=== PATIENT | female | born 1990 | race Caucasian/White ===

== ENCOUNTER 2018-10-23 11:59 | Emergency (ER) | payer OTHER ==
[2018-10-23] MEDS ORDERED: Ketorolac 60 MG/2 ML SDV IM SCH (13:30)
[2018-10-23] MEDS ORDERED: Ketorolac 60 MG/2 ML SDV IM ONE (13:51)
--- NOTE | 2018-10-23 14:01 | EDM.PDOC ---
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 She reports having a 09/28/18. She went to [facility] and was given Misoprostil. She reports last evening the pain became severe "stabbing pain that brings her to her knees." She reports the cramping is similar to when she had a ovarian cyst, but worse. She denies any vaginal bleeding, discharge or odor. She denies any fever, chills, back pain or dysuria. She does not have a PCP. She is G8 P 5 M1 A2. 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 Denies: Constipation, Diarrhea, Nausea : Reports: Pain, Other (suprapubic pain) Musculoskeletal: Reports: No Symptoms Skin: Reports: No Symptoms Neurological: Reports: No Symptoms Psychiatric: Reports: No Symptoms Hematologic/Lymphatic: Reports: No Symptoms Immunologic: Reports: No Symptoms ED EXAM, GI/ABD - Physical Exam Exam: See Below Exam Limited By: No Limitations General Appearance: Alert, WD/WN, No Apparent Distress Respiratory/Chest: No Respiratory Distress, Lungs Clear, Normal Breath Sounds, No Accessory Muscle Use, Chest Non-Tender Cardiovascular: Normal Peripheral Pulses, Regular Rate, Rhythm, No Edema, No Gallop, No JVD, No Murmur, No Rub GI/Abdominal Exam: Normal Bowel Sounds, Soft, No Organomegaly, No Distention, No Abnormal Bruit, No Mass, Pelvis Stable, Other (suprapubic tenderness with deep palpation. ) (Female) Exam: Deferred Back Exam: Normal Inspection, Full Range of Motion Extremities: Normal Inspection, Normal Range of Motion, Non-Tender, No Pedal Edema, Normal Capillary Refill Neurological: Alert, Oriented, Normal Cognition, Normal Gait, Normal Reflexes, No Motor/Sensory Deficits Psychiatric: Normal Affect, Normal Mood Skin Exam: Warm, Dry, Intact, Normal Color, No Rash Lymphatic: No Adenopathy Course - Vital Signs Last Recorded V/S: Last Vital Signs Temp 36.7 C 10/23/18 12:21 Pulse 69 10/23/18 12:21 Resp 20 10/23/18 12:21 BP 131/64 10/23/18 12:21 Pulse Ox 98 10/23/18 12:21 - Orders/Labs/Meds Labs: Laboratory Tests 10/23/18 10/23/18 10/23/18 Range/Units 12:40 12:40 13:22 WBC 7.98 (3.98-10.04) K/mm3 RBC 4.14 (3.98-5.22) M/mm3 Hgb 12.6 (11.2-15.7) gm/L Hct 37.3 (34.1-44.9) % MCV 90.1 (79.4-94.8) fl MCH 30.4 (25.6-32.2) pg MCHC 33.8 (32.2-35.5) g/dl RDW Std Deviation 43.0 (36.4-46.3) fL Plt Count 219 (182-369) K/mm3 MPV 10.6 (9.4-12.3) fl Neut % (Auto) 68.2 (34.0-71.1) % Lymph % (Auto) 24.4 (19.3-51.7) % [place] % (Auto) 6.0 (4.7-12.5) % Eos % (Auto) 0.8 (0.7-5.8) Baso % (Auto) 0.3 (0.1-1.2) % Neut # (Auto) 5.45 (1.56-6.13) K/mm3 Lymph # (Auto) 1.95 (1.18-3.74) K/mm3 [place] # (Auto) 0.48 H (0.24-0.36) K/mm3 Eos # (Auto) 0.06 (0.04-0.36) K/mm3 Baso # (Auto) 0.02 (0.01-0.08) K/mm3 C-Reactive Protein 0.2 (<1.0) mg/dL HCG, Quant 80857.0 mIU/mL Urine Color Yellow (Yellow) Urine Appearance Slt cloudy H (Clear) Urine pH 7.0 (5.0-8.0) Ur Specific [place] 1.025 (1.005-1.030) Urine Protein Negative (Negative) Urine Glucose (UA) Negative (Negative) Urine Ketones Negative (Negative) Urine Occult Blood Negative (Negative) Urine Nitrite Negative (Negative) Urine Bilirubin Negative (Negative) Urine Urobilinogen 0.2 (0.2-1.0) Ur Leukocyte Esterase Negative (Negative) Meds: Medications Discontinued Medications Generic Name Dose Route Start Last Admin Trade Name Freq PRN Reason Stop Dose Admin Ketorolac Tromethamine 60 mg 10/23/18 13:30 Toradol IM 10/28/18 13:30 Q6H [facility] Ketorolac Tromethamine 60 mg 10/23/18 13:51 10/23/18 13:53 Toradol IM 10/23/18 13:52 60 mg ONETIME ONE Administration Oxycodone/Acetaminophen 2 tab 10/23/18 14:42 10/23/18 15:40 Percocet 325-5 Mg PO 10/23/18 14:43 2 tab ONETIME ONE Administration - Re-Assessments/Exams Free Text/Narrative Re-Assessment/Exam: 10/23/18 14:45 Her WBC is 7.98 H & H 12.6 and 37.3. Urinalysis is unremarkable. Her HCG level is 63,168. I will defer pelvic examination. Awaiting transvaginal ultrasound. 10/23/18 16:40 Her ultrasound revealed IUP 12 weeks 1 day with FHT 173. I will discharge home with instructions to follow up with Dr. Rawls on Friday October 26, 2018. I instructed the patient to return to the ER for any new or acute worsening symptoms. Free Text/Narrative Re-Assessment/Exam: 10/23/18 16:[address] Rawls and discussed case with her. She will see the patient on Friday October 26, 2018. Departure - Departure Time of Disposition: 16:42 Disposition: Home, Self-Care 01 Condition: Good Clinical Impression: Qualifiers: Weeks of gestation: 13 weeks Qualified Code(s): Z3A.13 - 13 weeks gestation of - Discharge Information *PRESCRIPTION DRUG MONITORING PROGRAM REVIEWED*: Not Applicable *COPY OF PRESCRIPTION DRUG MONITORING REPORT IN PATIENT AMADOU: Not Applicable Instructions: Back Pain in Referrals: PCP,None [Primary Care Provider] - Forms: ED Department Discharge Additional Instructions: You have been diagnosis with suprapubic pain during . Your ultrasound revealed you hare 12 weeks and 1 day. Follow up with Dr. Rawls Friday2018. Take only Tylenol for pain. Return to the ER for any new or acute worsening symptoms. <Thomas Darby - Last Filed: 10/25/18 08:10> Course - Radiology Interpretation Free Text/Narrative:: 28-year-old female presents to the ED due to lower abdominal cramping pain and minimal bleeding per vagina. History suggests that she was 8 weeks gestation in 3 weeks ago underwent a therapeutic with oral pills presumably misoprostol. Reports that she never did appreciate any passage of tissue or evidence of tissue. Leading was only about 3 or 4 days in length and social was some moderate to severe abdominal cramps. Clinically she appears to be therefore appears to have a failed therapeutic . Discussed the findings with the nurse practitioner Ashley Peraza and we will proceed with quantitative and qualitative beta-hCG is urinalysis and a transvaginal ultrasound. - Re-Assessments/Exams Free Text/Narrative Re-Assessment/Exam: 10/23/18 16:10 I have been involved with this patient behind the scenes in terms of directing care and investigations by nurse practitioner ashley Peraza. After the ultrasound was completed I visualize the ultrasound and I recognize that she was still with a 12 week and 6 day fetus. Good heart tones appreciated. Discussion with the patient she is elected to keep the at this point time and not pursue further therapeutic . Therefore the patient will follow-up with Dr. Rawls next week on Friday. Patient and her had no questions when I discussed the findings with them.
[2018-10-23] MEDS ORDERED: Acetaminophen/oxyCODONE 325-5 MG Tab PO ONE (14:42)
--- NOTE | 2018-10-23 16:10 | US ---
First trimester obstetrical ultrasound: Multiple real-time images were obtained transabdominally and transvaginally. Comparison: No prior study for current . Dates: LMP: LMP given as 07/30/18, CHELE 05/06/19, gestational age of 12 weeks 1 day Current ultrasound: CHELE 05/03/19, gestational age 12 weeks 4 days Single intrauterine gestation is seen. Amniotic fluid volume is normal. Embryo is identified. No subchorionic hemorrhage is identified. Maternal left ovary is felt to be visualized and appears within normal limits. Maternal right ovary is not seen but right adnexa is unremarkable. Measurements: [place]-rump length: 5.50 cm - 12 weeks 1 day Heart rate: 173 BPM Impression: 1. Single intrauterine gestation. Dates as noted above. 2. No complicating process is seen by ultrasound at this time. Diagnostic code #1
== END 2018-10-23 17:24 | disposition home or self-care (01) ==
LOC: JD.ED 11:59
DX: O99.89 Other specified diseases and conditions complicating pregnancy, childbirth and the puerperium (principal); R10.30 Lower abdominal pain, unspecified; Z3A.13 13 weeks gestation of pregnancy
CPT/HCPCS: 36415; 76801; 81003; 84702; 85025; 86140; 96372; 99284; A9270; J1885

== ENCOUNTER 2019-01-06 16:29 | Emergency (ER) | payer OTHER ==
--- NOTE | 2019-01-06 16:56 | EDM.PDOC ---
ED HPI GENERAL MEDICAL PROBLEM - General Chief Complaint: Respiratory Problem Stated Complaint: CHEST PAIN X 3 DAYS Time Seen by Provider: 01/06/19 16:45 Source of Information: Reports: Patient History Limitations: Reports: No Limitations - History of Present Illness INITIAL COMMENTS - FREE TEXT/NARRATIVE: The patient presents with chest pain, cough and shortness of breath. This all started a few days ago. She also had some nausea and vomiting and she passed out a couple days ago. She feels like she has chills but no fever. She has a productive cough. She has nausea and vomiting and some abdominal pain. She has some shortness of breath. She could hear some bubbles when she was breathing last night. She has no lung problems such as asthma, COPD or smoking. Onset: Gradual Severity: Moderate Improves with: Reports: None Worsens with: Reports: None Associated Symptoms: Reports: Chest Pain, Cough, Fever/Chills, Nausea/Vomiting, Shortness of Breath. Denies: Headaches Middle Chest Pain Score (Numeric/FACES): 7 - Related Data Allergies Allergy/AdvReac Type Severity Reaction Status Date / Time amoxicillin Allergy Rash Verified 01/06/19 16:46 Home Meds: Home Meds Azithromycin [Zithromax] 250 mg PO DAILY #4 tab 01/06/19 [Rx] Cetirizine [ZyrTEC] 10 mg PO DAILY 01/06/19 [History] Codeine/Promethazine [Phenergan with Codeine] 5 - 10 ml PO Q6HR PRN #300 ml 07/15 [Rx] Omeprazole 20 mg PO DAILY 01/06/19 [History] Ondansetron [Zofran ODT] 4 mg PO Q6H PRN #20 tab.dis 01/06/19 [Rx] Past Medical History HEENT History: Reports: Impaired Vision Other HEENT History: Wears glasses Gastrointestinal History: Reports: Irritable Bowel Syndrome 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 Denies: Diarrhea : Reports: No Symptoms ED EXAM, GENERAL - Physical Exam Exam: See Below Exam Limited By: No Limitations General Appearance: Alert, No Apparent Distress Ears: Normal External Exam Nose: Normal Inspection Head: Atraumatic, Normocephalic Neck: Normal Inspection Respiratory/Chest: No Respiratory Distress, Normal Breath Sounds, Rhonchi (Mild to the right upper lung) Cardiovascular: Regular Rate, Rhythm, No Edema, No Murmur GI/Abdominal: Soft, Non-Tender, No Organomegaly, No Mass Back Exam: Normal Inspection Extremities: Normal Inspection EKG INTERPRETATION EKG Date: 01/06/19 Time: 17:11 Rhythm: NSR Rate (Beats/Min): 69 [place]: Normal P-Wave: Present QRS: Normal ST-T: Normal QT: Normal Course - Vital Signs Last Recorded V/S: Last Vital Signs Temp 99 F 01/06/19 16:35 Pulse 83 01/06/19 16:35 Resp 16 01/06/19 16:35 BP 143/83 H 01/06/19 16:35 Pulse Ox 98 01/06/19 16:35 - Orders/Labs/Meds Orders: Active Orders 24 hr Category Date Time Status Cardiac Monitoring [RC] . DIRECTED Care 01/06/19 17:02 Active EKG Documentation Completion [RC] STAT Care 01/06/19 17:03 Active Peripheral IV Care [RC] . DIRECTED Care 01/06/19 17:03 Active RT Aerosol Therapy [RC] ASDIRECTED Care 01/06/19 17:03 Active Chest 2V [CR] Stat Exams 01/06/19 17:03 Taken Azithromycin [Zithromax] Med 01/06/19 18:35 Once 500 mg PO ONETIME ONE Codeine/Promethazine [Phenergan with Codeine] Med 01/06/19 18:35 Once 5 ml PO ONETIME ONE Sodium Chloride 0.9% [Normal Saline] 1,000 ml Med 01/06/19 17:15 Active IV .BOLUS Sodium Chloride 0.9% [Saline Flush] Med 01/06/19 17:02 Active 10 ml FLUSH ASDIRECTED PRN Peripheral IV Insertion Adult [OM.PC] Stat Oth 01/06/19 17:02 Ordered Medication Orders Sodium Chloride (Normal Saline) 1,000 mls @ 1,000 mls/hr IV .BOLUS JENNIFER Last Admin: 01/06/19 17:15 Dose: 1,000 mls/hr Sodium Chloride (Saline Flush) 10 ml FLUSH ASDIRECTED PRN PRN Reason: Keep Vein Open Last Admin: 01/06/19 17:38 Dose: 10 ml Labs: Laboratory Tests 01/06/19 01/06/19 01/06/19 Range/Units 17:00 17:00 17:00 WBC 9.16 (3.98-10.04) K/mm3 RBC 4.70 (3.98-5.22) M/mm3 Hgb 14.3 D (11.2-15.7) gm/L Hct 43.2 (34.1-44.9) % MCV 91.9 (79.4-94.8) fl MCH 30.4 (25.6-32.2) pg MCHC 33.1 (32.2-35.5) g/dl RDW Std Deviation 45.0 (36.4-46.3) fL Plt Count 280 (182-369) K/mm3 MPV 10.8 (9.4-12.3) fl Neut % (Auto) 66.2 (34.0-71.1) % Lymph % (Auto) 25.8 (19.3-51.7) % [place] % (Auto) 6.4 (4.7-12.5) % Eos % (Auto) 1.1 (0.7-5.8) Baso % (Auto) 0.4 (0.1-1.2) % Neut # (Auto) 6.06 (1.56-6.13) K/mm3 Lymph # (Auto) 2.36 (1.18-3.74) K/mm3 [place] # (Auto) 0.59 H (0.24-0.36) K/mm3 Eos # (Auto) 0.10 (0.04-0.36) K/mm3 Baso # (Auto) 0.04 (0.01-0.08) K/mm3 Manual Slide Review Not Reportable D-Dimer, Quantitative 0.49 (0.19-0.50) mg/L Sodium 142 (136-145) mEq/L Potassium 3.8 (3.5-5.1) mEq/L Chloride 106 (98-107) mEq/L Carbon Dioxide 24 (21-32) mEq/L Anion Gap 15.8 H (5-15) BUN 12 (7-18) mg/dL Creatinine 0.7 (0.55-1.02) mg/dL Est Cr Clr Drug Dosing 105.74 mL/min Estimated GFR (MDRD) > 60 (>60) mL/min BUN/Creatinine Ratio 17.1 (14-18) Glucose 101 (74-106) mg/dL Calcium 9.2 (8.5-10.1) mg/dL Total Bilirubin 0.3 (0.2-1.0) mg/dL AST 14 L (15-37) U/L ALT 19 (14-59) U/L Alkaline Phosphatase 100 (46-116) U/L Troponin I < 0.017 (0.00-0.056) ng/mL Total Protein 7.0 (6.4-8.2) g/dl Albumin 3.7 (3.4-5.0) g/dl Globulin 3.3 gm/dL Albumin/Globulin Ratio 1.1 (1-2) Meds: Medications Generic Name Dose Route Start Last Admin Trade Name Freq PRN Reason Stop Dose Admin Sodium Chloride 1,000 mls @ 1,000 mls/hr 01/06/19 17:15 01/06/19 17:15 Normal Saline IV 1,000 mls/hr .BOLUS JENNIFER Administration Sodium Chloride 10 ml 01/06/19 17:02 01/06/19 17:38 Saline Flush FLUSH 10 ml ASDIRECTED PRN Administration Keep Vein Open Discontinued Medications Generic Name Dose Route Start Last Admin Trade Name Freq PRN Reason Stop Dose Admin Albuterol/Ipratropium 3 ml 01/06/19 17:03 01/06/19 17:17 Duoneb 3.0-0.5 Mg/3 Ml NEB 01/06/19 17:04 3 ml ONETIME ONE Administration Ibuprofen 600 mg 01/06/19 18:21 01/06/19 18:29 Motrin PO 01/06/19 18:22 600 mg ONETIME ONE Administration Ondansetron HCl 4 mg 01/06/19 17:06 06/12/19 17:38 Zofran IVPUSH 01/06/19 17:07 4 mg ONETIME ONE Administration - Re-Assessments/Exams Free Text/Narrative Re-Assessment/Exam: 01/06/19 18:09 I ordered an IV NS 1L bolus, zofran 4mg IV, EKG, CXR, labs and a duoneb. Her EKG shows a NSR with no acute changes. Her CXR shows no infiltrates. Her CBC and CMP look good. Her troponin is negative. 01/06/19 18:36 Her D-dimer is negative. I feel she has bronchitis. I have ordered a dose of zithromax and phenergan with codeine. Departure - Departure Time of Disposition: 18:40 Disposition: Home, Self-Care 01 Condition: Good Clinical Impression: Bronchitis, Atypical chest pain Nausea and vomiting Qualifiers: Vomiting type: unspecified Vomiting Intractability: non-intractable Qualified Code(s): R11.2 - Nausea with vomiting, unspecified - Discharge Information *PRESCRIPTION DRUG MONITORING PROGRAM REVIEWED*: No *COPY OF PRESCRIPTION DRUG MONITORING REPORT IN PATIENT AMADOU: No Prescriptions: Codeine/Promethazine [Phenergan with Codeine] 5 - 10 ml PO Q6HR PRN #300 ml PRN Reason: Cough Azithromycin [Zithromax] 250 mg PO DAILY #4 tab Referrals: PCP,None [Primary Care Provider] - Carla Brown PA-C [Physician Labor And Delivery Registered Nurse] - 1 Week Forms: ED Department Discharge Additional Instructions: Take the zithromax daily for 4 days starting tomorrow. Take the phenergan with codeine 5 to 10mls every 6 hours as needed for a cough. Try your inhaler 2 puffs every 6 hours for shortness of breath. Take the zofran 4mg every 6 hours as needed for nausea and vomiting. Drink plenty of fluids. Please return if you are worse. Follow up with Evelin Brown in 1 week. - My Orders Last 24 Hours: My Active Orders 01/06/19 17:02 Cardiac Monitoring [RC] . DIRECTED Sodium Chloride 0.9% [Saline Flush] 10 ml FLUSH ASDIRECTED PRN Peripheral IV Insertion Adult [OM.PC] Stat 01/06/19 17:03 EKG Documentation Completion [RC] STAT Peripheral IV Care [RC] . DIRECTED RT Aerosol Therapy [RC] ASDIRECTED Chest 2V [CR] Stat 01/06/19 17:15 Sodium Chloride 0.9% [Normal Saline] 1,000 ml IV .BOLUS 01/06/19 18:35 Azithromycin [Zithromax] 500 mg PO ONETIME ONE Codeine/Promethazine [Phenergan with Codeine] 5 ml PO ONETIME ONE - Assessment/Plan Last 24 Hours: My Active Orders 01/06/19 17:02 Cardiac Monitoring [RC] . DIRECTED Sodium Chloride 0.9% [Saline Flush] 10 ml FLUSH ASDIRECTED PRN Peripheral IV Insertion Adult [OM.PC] Stat 01/06/19 17:03 EKG Documentation Completion [RC] STAT Peripheral IV Care [RC] . DIRECTED RT Aerosol Therapy [RC] ASDIRECTED Chest 2V [CR] Stat 01/06/19 17:15 Sodium Chloride 0.9% [Normal Saline] 1,000 ml IV .BOLUS 01/06/19 18:35 Azithromycin [Zithromax] 500 mg PO ONETIME ONE Codeine/Promethazine [Phenergan with Codeine] 5 ml PO ONETIME ONE
[2019-01-06] MEDS ORDERED: Sodium Chloride 0.9% 10 ML Syringe FLUSH PRN (17:02)
[2019-01-06] MEDS ORDERED: Albuterol/Ipratropium 3.0-0.5 MG/3 ML Neb Soln NEB ONE (17:03)
[2019-01-06] MEDS ORDERED: Ondansetron 4 MG/2 ML SDV IVPUSH ONE (17:06)
[2019-01-06] MEDS ORDERED: Sodium Chloride 0.9% 1,000 ML IV SCH (17:15)
[2019-01-06] MEDS ORDERED: Ibuprofen 600 MG Tab PO ONE (18:21)
[2019-01-06] MEDS ORDERED: Codeine/Promethazine 10-6.25 MG/5 ML Syrup 5 ML UD Cup PO ONE (18:35)
[2019-01-06] MEDS ORDERED: Azithromycin 250 MG Tab PO ONE (18:35)
--- NOTE | 2019-01-07 08:30 | CR ---
Chest: Two views of the chest were obtained. Comparison: Prior chest x-ray of 07/16/18. Heart size and mediastinum are normal. Lungs are clear. Bony structures are unremarkable. Impression: 1. Nothing acute is seen on two-view chest x-ray. Diagnostic code #1
== END 2019-01-06 19:03 | disposition home or self-care (01) ==
LOC: JD.ED 16:29
DX: J40 Bronchitis, not specified as acute or chronic (principal); R11.2 Nausea with vomiting, unspecified; Z79.899 Other long term (current) drug therapy; Z88.1 Allergy status to other antibiotic agents
CPT/HCPCS: 36415; 71046; 80053; 84484; 85025; 85379; 93005; 94640; 96361; 96374; 99285; A9270; J2405; J7040; 93010; 99284; J7620-GY

== ENCOUNTER 2019-06-29 18:33 | Emergency (ER) | payer OTHER ==
[2019-06-29] MEDS ORDERED: Ibuprofen 600 MG Tab PO ONE (19:47)
--- NOTE | 2019-06-29 19:48 | EDM.PDOC ---
ED HPI GENERAL MEDICAL PROBLEM - General Chief Complaint: Bite:Animal, Insect Stated Complaint: dog bite Time Seen by Provider: 06/29/19 19:09 Source of Information: Reports: Patient, Family () History Limitations: Reports: No Limitations - History of Present Illness INITIAL COMMENTS - FREE TEXT/NARRATIVE: Mrs. 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 She states that the dog bit her arm, but did not shake his head. The dogs vaccinations are apparently up-to-date. She presents to the ED with 4 is a bruising/scratching to her distal right forearm. She states that her right hand has tingling and numbness. She is otherwise uninjured. No prior right forearm injury. The patient did not take any lvim-cce-szherbx medications or perform any treatment prior to coming to the ED. The patient's last tetanus vaccination was in 2013. The patient does not have a PCP. She has not received any influenza vaccine, but agreed to receive one here. Right Lower Arm Pain Score (Numeric/FACES): 7 - Related Data Allergies Allergy/AdvReac Type Severity Reaction Status Date / Time amoxicillin Allergy Rash Verified 01/06/19 16:46 Home Meds: Home Meds Azithromycin [Zithromax] 250 mg PO DAILY #4 tab 01/06/19 [Rx] Cetirizine [ZyrTEC] 10 mg PO DAILY 01/06/19 [History] Codeine/Promethazine [Phenergan with Codeine] 5 - 10 ml PO Q6HR PRN #300 ml 07/15 [Rx] Omeprazole 20 mg PO DAILY 01/06/19 [History] Ondansetron [Zofran ODT] 4 mg PO Q6H PRN #20 tab.dis 01/06/19 [Rx] Past Medical History HEENT History: Reports: Impaired Vision Other HEENT History: Wears glasses Gastrointestinal History: Reports: GERD 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: , Therapeutic Neurological History: Reports: Migraines (possible) - Past Surgical History HEENT Surgical History: Reports: Oral Surgery (wisdom teeth extraction) GI Surgical History: Reports: Colonoscopy (x 1), EGD (x 2) Female Surgical History: Reports: Section (x 1) Social & Family History - Tobacco Use Smoking Status *Q: Former Smoker Years of Tobacco use: 16 Packs/Tins Daily: 1 Month/Year Tobacco Last Used: Quit 2017 - Caffeine Use Caffeine Use: Reports: None - Alcohol Use Alcohol Use History: Yes Alcohol Use Frequency: Socially - Recreational Drug Use Recreational Drug Use: No - Living Situation & Occupation Living situation: Reports: , with Spouse, with Family (3 kids) 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 ED EXAM, ANIMAL BITE - Physical Exam Exam: See Below Exam Limited By: No Limitations General Appearance: Alert, WD/WN, Mild Distress (appears uncomfortable) Extremities: Other (On the distal half of the right forearm, there are 4 lesions - 2 ventral, 2 dorsal. There is a circular ecchymosis with associated swelling over the ventral aspect of the ulna. There is an additional smaller ecchymosis with some swelling over the ventral forearm, between the radius and ulna. There is a superficial scratch over the ulna on the dorsal aspect, and there is a tiny scratch and small ecchymosis over the dorsal aspect of the radius. No other physical injuries are found. Vascular status of the right upper extremity is intact, however, the patient is complaining of some tingling/ numbness to her right hand.) Course - Vital Signs Last Recorded V/S: Last Vital Signs Temp 36.7 C 06/29/19 18:40 Pulse 67 06/29/19 18:40 Resp 20 06/29/19 18:40 BP 118/89 06/29/19 18:40 Pulse Ox 100 06/29/19 18:40 - Orders/Labs/Meds Orders: Active Orders 24 hr Category Date Time Status Influenza Vaccine Charge [RC] .DISCHARGE Care 06/29/19 19:47 Active Forearm 2V Rt [CR] Stat Exams 06/29/19 19:47 Ordered Meds: Medications Discontinued Medications Generic Name Dose Route Start Last Admin Trade Name Freq PRN Reason Stop Dose Admin Ibuprofen 600 mg 06/29/19 19:47 06/29/19 20:04 Motrin PO 06/29/19 19:48 600 mg ONETIME ONE Administration Influenza Virus Vaccine 1 each 06/29/19 19:47 Pharmacy To Dose - Influenza Vaccine IM 06/29/19 19:48 ONETIME ONE Influenza Virus Vaccine 60 mcg 06/29/19 20:00 Fluzone Quad [id number] Syringe IM 06/29/19 20:01 .ONCE ONE - Re-Assessments/Exams Free Text/Narrative Re-Assessment/Exam: 06/29/19 19:48 While the patient has some bruising and some very superficial scratches to the skin, there are no actual puncture wounds or skin tears, therefore antibiotics are not indicated. Treatment will include icing the forearm for couple of days, to help minimize swelling, and ibuprofen. The patient's right hand paresthesia is almost certainly due to the swelling that she is experiencing in her right forearm, and we would expect her sensation to return to normal once the swelling has resolved. The patient is undecided as to whether she believes the forearm may be broken. Clinically, I do not suspect this, as the amount of force that would be required to break a bone would almost certainly break the skin, however, to reassure the patient, I have ordered x-rays of the forearm. 06/29/19 20:14 2-view radiographs of the right forearm appear to be normal. No fractures or dislocations identified. Formal read per the Radiologist pending. 06/29/19 20:17 X-ray results discussed with the patient and her . As above, the broken bones were found. I am recommending that the patient ice her forearm is much as possible over the next 2 days, to help minimize swelling. She should take over- the-counter ibuprofen as needed for discomfort. She will receive an influenza vaccine prior to discharge home. I will refer her to the clinic to establish a PCP. Departure - Departure Time of Disposition: 20:17 Disposition: Home, Self-Care 01 Condition: Good Clinical Impression: Dog bite of right forearm, Contusion of right forearm - Discharge Information *PRESCRIPTION DRUG MONITORING PROGRAM REVIEWED*: Not Applicable *COPY OF PRESCRIPTION DRUG MONITORING REPORT IN PATIENT AMADOU: Not Applicable Referrals: Amy Salazar MD [Physician] - Forms: ED Department Discharge Additional Instructions: You were seen in the emergency room after being bitten on your right forearm by a Belarusian Wilder. Workup in the ER included x-rays of your right forearm, which returned normal. No broken bones were found. We recommend that you ice your right forearm as much as possible over the next 2 days, to help minimize swelling. Take jurx-ieb-ygjmzea ibuprofen, 2-3 tablets (400-600 mg) every 8 hours, with food, as needed for discomfort. The tingling/numbness in your right hand should resolve after the swelling in your forearm has gone down. Follow-up with Dr. Amy Salazar, or one of the other providers in the clinic, to establish a PCP. If any other problems, please do not hesitate to return to the ER. *You received an influenza vaccine during your ER visit.* - My Orders Last 24 Hours: My Active Orders 06/29/19 19:47 Influenza Vaccine Charge [RC] .DISCHARGE Forearm 2V Rt [CR] Stat - Assessment/Plan Last 24 Hours: My Active Orders 06/29/19 19:47 Influenza Vaccine Charge [RC] .DISCHARGE Forearm 2V Rt [CR] Stat
[2019-06-29] MEDS ORDERED: FLU Vacc QS2019-20(6MOS+)/PF 60 MCG/0.5 ML SYRINGE IM ONE (20:00)
--- NOTE | 2019-06-30 09:37 | CR ---
Right forearm: Two views of the right forearm were obtained. Comparison: No prior right forearm study. No fracture or other bony abnormality is seen. Impression: 1. No abnormality is identified on two-view right forearm study. Diagnostic code #1 This report was dictated in [place] Standard Time
== END 2019-06-29 20:32 | disposition home or self-care (01) ==
LOC: JD.ED 18:33
DX: S51.851A Open bite of right forearm, initial encounter (principal); S50.11XA Contusion of right forearm, initial encounter; Z23 Encounter for immunization; K21.9 Gastro-esophageal reflux disease without esophagitis; Z87.891 Personal history of nicotine dependence; Z88.1 Allergy status to other antibiotic agents; Z79.899 Other long term (current) drug therapy; W54.0XXA Bitten by dog, initial encounter
CPT/HCPCS: 73090-26-RT; 73090-RT; 90686; 99282; 99283-25; A9270-GY; G0008

== ENCOUNTER 2020-12-03 19:08 | Emergency (ER) | payer OTHER ==
--- NOTE | 2020-12-03 21:12 | EDM.PDOC ---
ED HPI GENERAL MEDICAL PROBLEM - General Chief Complaint: Back Pain or Injury Stated Complaint: BACK PAIN/PAIN WHILE URINATING Time Seen by Provider: 12/03/20 19:30 Source of Information: Reports: Patient History Limitations: Reports: No Limitations - History of Present Illness INITIAL COMMENTS - FREE TEXT/NARRATIVE: 30-year-old female presents to the emergency department today with complaints of UTI not resolving. Per the patient reports she states she was seen at [facility] on November 28 with symptoms of UTI which included frequency and burning with urination. She states she was started on Macrobid at that time. 2 days later her symptoms were not resolving so she returned to [facility] and had a CT scan of her abdomen and pelvis to rule out kidney stones. She states she was told at that time that there were no kidney stones noted on the CT scan. She states her she completed her course of antibiotic yesterday however she still having burning with urination. She also states that she had a low-grade temp at the initiation of her symptoms however has not noted any since. Of note, the patient states that she has been seen at [facility] in the past with pelvic pain and was recommended to have an MRI but did not have this done and did not return for her follow-up appointment for further evaluation. 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 Neurological History: Reports: Migraines - Past Surgical History HEENT Surgical History: Reports: Oral Surgery GI Surgical History: Reports: Colonoscopy, EGD Female Surgical History: Reports: Section Social & Family History - Tobacco Use Tobacco Use Status *Q: Never Tobacco User - Caffeine Use Caffeine Use: Reports: Coffee - Recreational Drug Use Recreational Drug Use: No - Living Situation & Occupation Living situation: Reports: , with Spouse, with Family (3 kids) 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 ED EXAM, RENAL/ - Physical Exam Exam: See Below Exam Limited By: No Limitations General Appearance: Alert, WD/WN, Mild Distress Ears: Normal External Exam, Hearing Grossly Normal Nose: Normal Inspection Throat/Mouth: Normal Inspection, Normal Lips, Normal Voice, No Airway Compromise Head: Atraumatic Neck: Normal Inspection Respiratory/Chest: No Respiratory Distress, Lungs Clear, Normal Breath Sounds, No Accessory Muscle Use, Chest Non-Tender Cardiovascular: Normal Peripheral Pulses, Regular Rate, Rhythm, No Edema, No Murmur GI/Abdominal: Normal Bowel Sounds, Soft, No Distention. No: Non-Tender (Suprapubic tenderness) (Female) Exam: Deferred Rectal (Female) Exam: Deferred Back Exam: Normal Inspection Extremities: Normal Inspection Neurological: Alert, Oriented, Normal Cognition Psychiatric: Normal Affect, Normal Mood Skin Exam: Warm, Dry, Intact, Normal Color, No Rash Lymphatic: No Adenopathy Course - Vital Signs Text/Narrative:: Patient presents the emergency department with complaints of urinary symptoms. She states she was diagnosed with UTI 6 days ago at [facility]. She had symptoms such as frequency and burning with urinary cruz and low back pain. She states that 2 days later her symptoms did not seem to have resolved so she returned to the [facility] and a repeat UA was completed which showed that the UTI was resolving. She also had a CT of the abdomen and pelvis at that time to rule out kidney stones and they did rule this out at that time. Patient presents here today as she complaints of urinary frequency and burning. I have ordered a CBC, CMP, C-reactive protein and a urinalysis. Last Recorded V/S: Last Vital Signs Temp 99.4 F 12/03/20 19:31 Pulse 72 12/03/20 19:31 Resp 20 12/03/20 19:31 BP 136/88 12/03/20 19:31 Pulse Ox 97 12/03/20 19:31 - Orders/Labs/Meds Labs: Laboratory Tests 12/03/20 12/03/20 12/03/20 Range/Units 19:50 19:50 20:00 WBC 9.14 (3.98-10.04) K/mm3 RBC 4.45 (3.98-5.22) M/mm3 Hgb 12.8 D (11.2-15.7) gm/dl Hct 39.4 (34.1-44.9) % MCV 88.5 D (79.4-94.8) fl MCH 28.8 (25.6-32.2) pg MCHC 32.5 (32.2-35.5) g/dl RDW Std Deviation 44.8 (36.4-46.3) fL Plt Count 296 (182-369) K/mm3 MPV 10.7 (9.4-12.3) fl Neut % (Auto) 51.1 (34.0-71.1) % Lymph % (Auto) 38.4 (19.3-51.7) % Campbell % (Auto) 8.5 (4.7-12.5) % Eos % (Auto) 1.2 (0.7-5.8) Baso % (Auto) 0.7 (0.1-1.2) % Neut # (Auto) 4.67 (1.56-6.13) K/mm3 Lymph # (Auto) 3.51 (1.18-3.74) K/mm3 Campbell # (Auto) 0.78 H (0.24-0.36) K/mm3 Eos # (Auto) 0.11 (0.04-0.36) K/mm3 Baso # (Auto) 0.06 (0.01-0.08) K/mm3 Sodium (136-145) mEq/L Potassium (3.5-5.1) mEq/L Chloride (98-107) mEq/L Carbon Dioxide (21-32) mEq/L Anion Gap (5-15) BUN (7-18) mg/dL Creatinine (0.55-1.02) mg/dL Est Cr Clr Drug Dosing mL/min Estimated GFR (MDRD) (>60) mL/min BUN/Creatinine Ratio (14-18) Glucose (74-106) mg/dL Calcium (8.5-10.1) mg/dL Total Bilirubin (0.2-1.0) mg/dL AST (15-37) U/L ALT (14-59) U/L Alkaline Phosphatase (46-116) U/L C-Reactive Protein (<1.0) mg/dL Total Protein (6.4-8.2) g/dl Albumin (3.4-5.0) g/dl Globulin gm/dL Albumin/Globulin Ratio (1-2) Urine Color Yellow (Yellow) Urine Appearance Clear (Clear) Urine pH 6.5 (5.0-8.0) Ur Specific [place] > or = 1.030 (1.005-1.030) Urine Protein Negative (Negative) Urine Glucose (UA) Negative (Negative) Urine Ketones Negative (Negative) Urine Occult Blood Trace-intact H (Negative) Urine Nitrite Negative (Negative) Urine Bilirubin Negative (Negative) Urine Urobilinogen 0.2 (0.2-1.0) Ur Leukocyte Esterase Negative (Negative) Urine RBC 0-5 (0-5) /hpf Urine WBC 0-5 (0-5) /hpf Ur Squamous Epith Cells 0-5 (0-5) /hpf Urine Bacteria Few (FEW) /hpf Urine Mucus Moderate H (FEW) /hpf Urine HCG, Qual Negative (NEGATIVE) 12/03/20 Range/Units 20:00 WBC (3.98-10.04) K/mm3 RBC (3.98-5.22) M/mm3 Hgb (11.2-15.7) gm/dl Hct (34.1-44.9) % MCV (79.4-94.8) fl MCH (25.6-32.2) pg MCHC (32.2-35.5) g/dl RDW Std Deviation (36.4-46.3) fL Plt Count (182-369) K/mm3 MPV (9.4-12.3) fl Neut % (Auto) (34.0-71.1) % Lymph % (Auto) (19.3-51.7) % Campbell % (Auto) (4.7-12.5) % Eos % (Auto) (0.7-5.8) Baso % (Auto) (0.1-1.2) % Neut # (Auto) (1.56-6.13) K/mm3 Lymph # (Auto) (1.18-3.74) K/mm3 Campbell # (Auto) (0.24-0.36) K/mm3 Eos # (Auto) (0.04-0.36) K/mm3 Baso # (Auto) (0.01-0.08) K/mm3 Sodium 143 (136-145) mEq/L Potassium 3.8 (3.5-5.1) mEq/L Chloride 106 (98-107) mEq/L Carbon Dioxide 25 (21-32) mEq/L Anion Gap 15.8 H (5-15) BUN 15 (7-18) mg/dL Creatinine 0.7 (0.55-1.02) mg/dL Est Cr Clr Drug Dosing 103.82 mL/min Estimated GFR (MDRD) > 60 (>60) mL/min BUN/Creatinine Ratio 21.4 H (14-18) Glucose 89 (74-106) mg/dL Calcium 8.8 (8.5-10.1) mg/dL Total Bilirubin 0.2 (0.2-1.0) mg/dL AST 12 L (15-37) U/L ALT 22 (14-59) U/L Alkaline Phosphatase 75 (46-116) U/L C-Reactive Protein <0.2 (<1.0) mg/dL Total Protein 7.1 (6.4-8.2) g/dl Albumin 3.8 (3.4-5.0) g/dl Globulin 3.3 gm/dL Albumin/Globulin Ratio 1.2 (1-2) Urine Color (Yellow) Urine Appearance (Clear) Urine pH (5.0-8.0) Ur Specific [place] (1.005-1.030) Urine Protein (Negative) Urine Glucose (UA) (Negative) Urine Ketones (Negative) Urine Occult Blood (Negative) Urine Nitrite (Negative) Urine Bilirubin (Negative) Urine Urobilinogen (0.2-1.0) Ur Leukocyte Esterase (Negative) Urine RBC (0-5) /hpf Urine WBC (0-5) /hpf Ur Squamous Epith Cells (0-5) /hpf Urine Bacteria (FEW) /hpf Urine Mucus (FEW) /hpf Urine HCG, Qual (NEGATIVE) - Re-Assessments/Exams Free Text/Narrative Re-Assessment/Exam: 12/03/20 21:04 Hematology is unremarkable, chemistry reveals a anion gap of 15.8, C-reactive protein less than 0.2 Urinalysis shows a trace of intact blood otherwise it is unremarkable, urine test is negative. 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 Departure - Departure Time of Disposition: 21:12 Disposition: Home, Self-Care 01 Condition: Good Clinical Impression: Burning with urination - Discharge Information Instructions: Pain Medicine Instructions, [id number] Referrals: Rosalba Anglin MD [Primary Care Provider] - Forms: ED Department Discharge Additional Instructions: You were seen in the emergency department today with complaints of UTI and symptoms not resolving. He stated that you are seen at the walk-in clinic and had a follow-up CT which ruled out kidney stones. While you were in the emergency department today lab work was completed as well as a urinalysis and this was all essentially unremarkable. You do not have a urinary tract infection. You do not have any signs of infection as her white blood cell count was not elevated nor was your inflammatory markers. Urine test was also negative. Strongly recommend that you follow-up with the GRAVEL TRUCK DRIVER. You can call [facility] to schedule appointment with either Dr. Gonzalez or Dr. Jesus. The phone number for this is [phone]. Sepsis Event Note (ED) - Evaluation Sepsis Screening Result: No Definite Risk - Focused Exam Vital Signs: Vital Signs Temp Pulse Resp BP Pulse Ox 12/03/20 19:31 99.4 F 72 20 136/88 97
== END 2020-12-03 21:23 | disposition home or self-care (01) ==
LOC: JD.ED 19:08
DX: R30.0 Dysuria (principal); K21.9 Gastro-esophageal reflux disease without esophagitis; Z88.0 Allergy status to penicillin; Z79.899 Other long term (current) drug therapy
CPT/HCPCS: 36415; 80053; 81001; 81025; 85025; 86140; 99283

== ENCOUNTER 2021-02-12 05:36 | Emergency (ER) | payer OTHER ==
--- NOTE | 2021-02-12 06:12 | EDM.PDOC ---
ED HPI GENERAL MEDICAL PROBLEM - General Chief Complaint: Fever Stated Complaint: FEVER Time Seen by Provider: 02/12/21 06:01 - History of Present Illness INITIAL COMMENTS - FREE TEXT/NARRATIVE: 30-year-old female presents the emergency room with a headache and fever. This started 2 days ago she developed a headache then the headache progressively got worse and then she noticed she was running a fever was as high as 102 yeste rday. She does not really seem to have any associated symptoms she is got no nausea no vomiting no burning or frequency with urination she has a little bit of a cough but she always has a chronic cough secondary to reflux and this is not changed at all. She does not seem to have any neck pain or generalized myalgias. 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 History: Reports: , Therapeutic Neurological History: Reports: Migraines - Past Surgical History HEENT Surgical History: Reports: Oral Surgery GI Surgical History: Reports: Colonoscopy, EGD Female Surgical History: Reports: Section Social & Family History - Caffeine Use Caffeine Use: Reports: Coffee - Living Situation & Occupation Living situation: Reports: , with Spouse, with Family (3 kids) 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 Denies: Confusion, Dizziness, Weakness Psychiatric: Reports: No Symptoms ED EXAM, GENERAL - Physical Exam Exam: See Below Exam Limited By: No Limitations General Appearance: Alert, No Apparent Distress Eye Exam: Bilateral Eye: Normal Inspection, PERRL Ears: Normal External Exam, Normal Canal, Hearing Grossly Normal, Normal TMs Nose: Normal Inspection, Normal Mucosa, No Blood Throat/Mouth: Normal Inspection, Normal Lips, Normal Teeth, Normal Gums, Normal Oropharynx, Normal Voice, No Airway Compromise Head: Atraumatic, Normocephalic Neck: Normal Inspection, Supple, Non-Tender, Full Range of Motion, Other (Full range of motion of her neck without tenderness or discomfort). No: Limited Range of Motion, Lymphadenopathy (L), Lymphadenopathy (R) Respiratory/Chest: No Respiratory Distress, Lungs Clear, Normal Breath Sounds, No Accessory Muscle Use, Chest Non-Tender Cardiovascular: Regular Rate, Rhythm, No Edema, No Murmur GI/Abdominal: Normal Bowel Sounds, Soft, Non-Tender Back Exam: Normal Inspection. No: CVA Tenderness (L), CVA Tenderness (R) Extremities: Normal Inspection, No Pedal Edema Neurological: Alert, Oriented, CN II-XII Intact, Normal Cognition, No Motor/Sensory Deficits Skin Exam: Warm, Dry, Intact Course - Vital Signs Last Recorded V/S: Last Vital Signs Temp 38.3 C H 02/12/21 05:41 Pulse 118 H 02/12/21 05:41 Resp 16 02/12/21 05:41 BP 126/85 02/12/21 05:41 Pulse Ox 96 02/12/21 05:41 - Orders/Labs/Meds Orders: Active Orders 24 hr Category Date Time Status CULTURE BLOOD [BC] Stat Lab 02/12/21 06:00 Received CULTURE BLOOD [BC] Stat Lab 02/12/21 06:08 Received Lactated Ringers [Ringers, Lactated] 1,000 ml Med 02/12/21 06:47 Active IV .BOLUS Medication Orders Lactated Ringer's (Ringers, Lactated) 1,000 mls @ 999 mls/hr IV .BOLUS ONE Stop: 02/12/21 07:47 Last Admin: 02/12/21 06:53 Dose: 999 mls/hr Documented by: CAMELIA Labs: Laboratory Tests 02/12/21 02/12/21 02/12/21 Range/Units 05:45 05:45 05:45 WBC (3.98-10.04) K/mm3 RBC (3.98-5.22) M/mm3 Hgb (11.2-15.7) gm/dl Hct (34.1-44.9) % MCV (79.4-94.8) fl MCH (25.6-32.2) pg MCHC (32.2-35.5) g/dl RDW Std Deviation (36.4-46.3) fL Plt Count (182-369) K/mm3 MPV (9.4-12.3) fl Neut % (Auto) (34.0-71.1) % Lymph % (Auto) (19.3-51.7) % [place] % (Auto) (4.7-12.5) % Eos % (Auto) (0.7-5.8) Baso % (Auto) (0.1-1.2) % Neut # (Auto) (1.56-6.13) K/mm3 Lymph # (Auto) (1.18-3.74) K/mm3 [place] # (Auto) (0.24-0.36) K/mm3 Eos # (Auto) (0.04-0.36) K/mm3 Baso # (Auto) (0.01-0.08) K/mm3 Sodium (136-145) mEq/L Potassium (3.5-5.1) mEq/L Chloride (98-107) mEq/L Carbon Dioxide (21-32) mEq/L Anion Gap (5-15) BUN (7-18) mg/dL Creatinine (0.55-1.02) mg/dL Est Cr Clr Drug Dosing mL/min Estimated GFR (MDRD) (>60) mL/min BUN/Creatinine Ratio (14-18) Glucose (70-99) mg/dL Lactic Acid (0.4-2.0) mmol/L Calcium (8.5-10.1) mg/dL Total Bilirubin (0.2-1.0) mg/dL AST (15-37) U/L ALT (14-59) U/L Alkaline Phosphatase (46-116) U/L C-Reactive Protein (<1.0) mg/dL Total Protein (6.4-8.2) g/dl Albumin (3.4-5.0) g/dl Globulin gm/dL Albumin/Globulin Ratio (1-2) Urine Color Yellow (Yellow) Urine Appearance Clear (Clear) Urine pH 6.5 (5.0-8.0) Ur Specific [place] 1.015 (1.005-1.030) Urine Protein Negative (Negative) Urine Glucose (UA) Negative (Negative) Urine Ketones Negative (Negative) Urine Occult Blood Negative (Negative) Urine Nitrite Negative (Negative) Urine Bilirubin Negative (Negative) Urine Urobilinogen 0.2 (0.2-1.0) Ur Leukocyte Esterase Negative (Negative) Urine HCG, Qual Negative (NEGATIVE) Influenza Type A RNA Negative (NEGATIVE) Influenza Type B RNA Negative (NEGATIVE) SARS-CoV-2 RNA (DERICK) Positive H (NEGATIVE) 02/12/21 02/12/21 02/12/21 Range/Units 06:00 06:00 06:00 WBC 3.34 L (3.98-10.04) K/mm3 RBC 4.87 (3.98-5.22) M/mm3 Hgb 13.9 (11.2-15.7) gm/dl Hct 42.5 (34.1-44.9) % MCV 87.3 (79.4-94.8) fl MCH 28.5 (25.6-32.2) pg MCHC 32.7 (32.2-35.5) g/dl RDW Std Deviation 46.4 H (36.4-46.3) fL Plt Count 210 D (182-369) K/mm3 MPV 11.2 (9.4-12.3) fl Neut % (Auto) 60.8 (34.0-71.1) % Lymph % (Auto) 26.3 (19.3-51.7) % [place] % (Auto) 12.0 (4.7-12.5) % Eos % (Auto) 0.3 L (0.7-5.8) Baso % (Auto) 0.6 (0.1-1.2) % Neut # (Auto) 2.03 (1.56-6.13) K/mm3 Lymph # (Auto) 0.88 L (1.18-3.74) K/mm3 [place] # (Auto) 0.40 H (0.24-0.36) K/mm3 Eos # (Auto) 0.01 L (0.04-0.36) K/mm3 Baso # (Auto) 0.02 (0.01-0.08) K/mm3 Sodium 141 (136-145) mEq/L Potassium 4.0 (3.5-5.1) mEq/L Chloride 107 (98-107) mEq/L Carbon Dioxide 24 (21-32) mEq/L Anion Gap 14.0 (5-15) BUN 8 (7-18) mg/dL Creatinine 0.8 (0.55-1.02) mg/dL Est Cr Clr Drug Dosing 90.84 mL/min Estimated GFR (MDRD) > 60 (>60) mL/min BUN/Creatinine Ratio 10.0 L (14-18) Glucose 102 H (70-99) mg/dL Lactic Acid 0.7 (0.4-2.0) mmol/L Calcium 9.0 (8.5-10.1) mg/dL Total Bilirubin 0.1 L (0.2-1.0) mg/dL AST 23 (15-37) U/L ALT 37 (14-59) U/L Alkaline Phosphatase 84 (46-116) U/L C-Reactive Protein < 0.2 (<1.0) mg/dL Total Protein 7.4 (6.4-8.2) g/dl Albumin 3.9 (3.4-5.0) g/dl Globulin 3.5 gm/dL Albumin/Globulin Ratio 1.1 (1-2) Urine Color (Yellow) Urine Appearance (Clear) Urine pH (5.0-8.0) Ur Specific [place] (1.005-1.030) Urine Protein (Negative) Urine Glucose (UA) (Negative) Urine Ketones (Negative) Urine Occult Blood (Negative) Urine Nitrite (Negative) Urine Bilirubin (Negative) Urine Urobilinogen (0.2-1.0) Ur Leukocyte Esterase (Negative) Urine HCG, Qual (NEGATIVE) Influenza Type A RNA (NEGATIVE) Influenza Type B RNA (NEGATIVE) SARS-CoV-2 RNA (DERICK) (NEGATIVE) Meds: Medications Generic Name Dose Route Start Last Admin Trade Name Freq PRN Reason Stop Dose Admin Lactated Ringer's 1,000 mls @ 999 mls/hr 02/12/21 06:47 02/12/21 06:53 Ringers, Lactated IV 02/12/21 07:47 999 mls/hr .BOLUS ONE Administration Discontinued Medications Generic Name Dose Route Start Last Admin Trade Name Freq PRN Reason Stop Dose Admin Acetaminophen 650 mg 02/12/21 06:47 02/12/21 06:53 Acetaminophen 325 Mg Tab PO 02/12/21 06:48 650 mg NOW ONE Administration - Re-Assessments/Exams Free Text/Narrative Re-Assessment/Exam: 02/12/21 08:14 Patient is doing little better at this time her Covid test did come back positive her labs are in line with this white count is at the low side of normal. At this point no further work-up is indicated we will discharge Departure - Departure Time of Disposition: 08:15 Disposition: Home, Self-Care 01 Clinical Impression: COVID-19 - Discharge Information Referrals: Tarah Jones PA-C [Primary Care Provider] - Forms: ED Department Discharge Additional Instructions: Return to the emergency room with any questions problems worsening symptoms. Self-isolation at home preferably in an isolated room for the next 10 days. Use Tylenol and/or Motrin as needed for fever and discomfort. Sepsis Event Note (ED) - Evaluation Sepsis Screening Result: Possible Sepsis Risk - Focused Exam Vital Signs: Vital Signs Temp Pulse Resp BP Pulse Ox 02/12/21 05:41 38.3 C H 118 H 16 126/85 96 - My Orders Last 24 Hours: My Active Orders 02/12/21 06:00 CULTURE BLOOD [BC] Stat 02/12/21 06:08 CULTURE BLOOD [BC] Stat 02/12/21 06:47 Lactated Ringers [Ringers, Lactated] 1,000 ml IV .BOLUS - Assessment/Plan Last 24 Hours: My Active Orders 02/12/21 06:00 CULTURE BLOOD [BC] Stat 02/12/21 06:08 CULTURE BLOOD [BC] Stat 02/12/21 06:47 Lactated Ringers [Ringers, Lactated] 1,000 ml IV .BOLUS
[2021-02-12 06:40] LABS: CORONAVIRUS COVID-19 NAA POSITIVE (NEGATIVE)
[2021-02-12] MEDS ORDERED: Acetaminophen 325 MG Tab PO ONE (06:47)
[2021-02-12] MEDS ORDERED: Lactated Ringers 1,000 ML IV ONE (06:47)
== END 2021-02-12 08:38 | disposition left against medical advice (07) ==
LOC: JD.ED 05:36
DX: U07.1 COVID-19 (principal); K21.9 Gastro-esophageal reflux disease without esophagitis; Z88.0 Allergy status to penicillin; Z79.899 Other long term (current) drug therapy
CPT/HCPCS: 0240U; 36415; 80053; 81003; 81025; 83605; 85025; 86140; 87040; 99284; A9270; J7120; 99283

== ENCOUNTER 2021-02-19 16:50 | Emergency (ER) | payer OTHER ==
[2021-02-19] MEDS ORDERED: Sodium Chloride 0.9% 10 ML Syringe FLUSH PRN (17:06)
[2021-02-19] MEDS ORDERED: Sodium Chloride 0.9% 1,000 ML IV STA (18:05)
[2021-02-19] MEDS ORDERED: Ondansetron 4 MG/2 ML SDV IVPUSH ONE (18:05)
[2021-02-19] MEDS ORDERED: Ketorolac 30 MG/ML SDV IVPUSH ONE (18:05)
--- NOTE | 2021-02-19 18:35 | EDM.PDOC ---
ED HPI GENERAL MEDICAL PROBLEM - General Chief Complaint: Respiratory Problem Stated Complaint: COVID POS AND CHEST PAIN Time Seen by Provider: 02/19/21 17:06 Source of Information: Reports: Patient, RN Notes Reviewed History Limitations: Reports: No Limitations - History of Present Illness INITIAL COMMENTS - FREE TEXT/NARRATIVE: Patient is a 30-year-old female presenting to the emergency department with complaints of ongoing headache, cough, shortness of breath, and diarrhea associated with COVID-19. She was diagnosed with Covid 12 days ago. She developed nausea and vomiting today. Also reports that she is having some lightheadedness upon standing. She had initially been febrile at the onset of symptoms, but states this has resolved. She reports upper chest discomfort that worsens with coughing. Cough is occasionally productive of clear sputum but mostly dry. She took Tylenol for her headache this morning. She was contacted by the [facility] who advised that she should follow-up with her primary care for reevaluation of her symptoms. She contacted her primary care provider and she recommended that she come to the ER. Treatments STAFF RESEARCH ASSOCIATE: Reports: Other (see below) Other Treatments STAFF RESEARCH ASSOCIATE: motrin Upper Chest Pain Score (Numeric/FACES): 5 Bilateral Headache Pain Score (Numeric/FACES): 8 - Related Data Allergies Allergy/AdvReac Type Severity Reaction Status Date / Time amoxicillin Allergy Severe Rash Verified 02/12/21 05:43 Home Meds: Home Meds Cetirizine [ZyrTEC] 10 mg PO DAILY 01/06/19 [History] Sucralfate [Carafate] 1 gm PO DAILY 02/12/21 [History] Pantoprazole Sodium [Protonix] 40 mg PO DAILY 02/19/21 [History] Past Medical History HEENT History: Reports: Impaired Vision Other HEENT History: Wears glasses Gastrointestinal History: Reports: GERD 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: , 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 Neurological History: Reports: Migraines - Infectious Disease History Infectious Disease History: Reports: Novel Coronavirus - Past Surgical History HEENT Surgical History: Reports: Oral Surgery GI Surgical History: Reports: Colonoscopy, EGD Female Surgical History: Reports: Section Social & Family History - Tobacco Use Tobacco Use Status *Q: Never Tobacco User - Caffeine Use Caffeine Use: Reports: Coffee - Recreational Drug Use Recreational Drug Use: No - Living Situation & Occupation Living situation: Reports: , with Spouse, with Family (3 kids) 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 Denies: Fever, Chills ED EXAM, GENERAL - Physical Exam Exam: See Below Exam Limited By: No Limitations General Appearance: Alert, WD/WN, No Apparent Distress Respiratory/Chest: No Respiratory Distress, Lungs Clear, Normal Breath Sounds, No Accessory Muscle Use, Chest Non-Tender Cardiovascular: Normal Peripheral Pulses, Regular Rate, Rhythm, No Edema, No Gallop, No JVD, No Murmur, No Rub GI/Abdominal: Normal Bowel Sounds, Soft, Non-Tender, No Organomegaly, No Di stention, No Abnormal Bruit, No Mass Neurological: Alert, Oriented, CN II-XII Intact, Normal Cognition, Normal Gait, Normal Reflexes, No Motor/Sensory Deficits Psychiatric: Normal Affect, Normal Mood Skin Exam: Warm, Dry, Intact, Normal Color, No Rash #1 Interpretation EKG Date: 02/19/21 Time: 17:02 Rhythm: NSR Rate (Beats/Min): 65 [place]: Normal P-Wave: Present QRS: Normal ST-T: Normal QT: Normal Course - Vital Signs Last Recorded V/S: Last Vital Signs Temp 98.8 F 02/19/21 17:03 Pulse 65 02/19/21 17:03 Resp 20 02/19/21 17:03 BP 143/104 H 02/19/21 17:03 Pulse Ox 99 02/19/21 17:03 - Orders/Labs/Meds Labs: Laboratory Tests 02/19/21 02/19/21 02/19/21 Range/Units 18:35 18:35 18:35 WBC 3.63 L (3.98-10.04) K/mm3 RBC 4.61 (3.98-5.22) M/mm3 Hgb 12.9 (11.2-15.7) gm/dl Hct 39.4 (34.1-44.9) % MCV 85.5 (79.4-94.8) fl MCH 28.0 (25.6-32.2) pg MCHC 32.7 (32.2-35.5) g/dl RDW Std Deviation 43.3 (36.4-46.3) fL Plt Count 210 (182-369) K/mm3 MPV 10.5 (9.4-12.3) fl Neut % (Auto) 27.8 L (34.0-71.1) % Lymph % (Auto) 64.2 H (19.3-51.7) % [place] % (Auto) 6.6 (4.7-12.5) % Eos % (Auto) 0.8 (0.7-5.8) Baso % (Auto) 0.6 (0.1-1.2) % Neut # (Auto) 1.01 L (1.56-6.13) K/mm3 Lymph # (Auto) 2.33 (1.18-3.74) K/mm3 [place] # (Auto) 0.24 (0.24-0.36) K/mm3 Eos # (Auto) 0.03 L (0.04-0.36) K/mm3 Baso # (Auto) 0.02 (0.01-0.08) K/mm3 D-Dimer, Quantitative 0.42 (0.19-0.50) mg/L Sodium 146 H (136-145) mEq/L Potassium 3.6 (3.5-5.1) mEq/L Chloride 111 H (98-107) mEq/L Carbon Dioxide 23 (21-32) mEq/L Anion Gap 15.6 H (5-15) BUN 9 (7-18) mg/dL Creatinine 0.6 (0.55-1.02) mg/dL Est Cr Clr Drug Dosing 121.13 mL/min Estimated GFR (MDRD) > 60 (>60) mL/min BUN/Creatinine Ratio 15.0 (14-18) Glucose 94 (70-99) mg/dL Calcium 8.5 (8.5-10.1) mg/dL Total Bilirubin 0.2 (0.2-1.0) mg/dL AST 27 (15-37) U/L ALT 37 (14-59) U/L Alkaline Phosphatase 67 (46-116) U/L Troponin I < 0.017 (0.00-0.056) ng/mL C-Reactive Protein <0.2 (<1.0) mg/dL Total Protein 7.0 (6.4-8.2) g/dl Albumin 3.6 (3.4-5.0) g/dl Globulin 3.4 gm/dL Albumin/Globulin Ratio 1.1 (1-2) Meds: Medications Discontinued Medications Generic Name Dose Route Start Last Admin Trade Name Lisa PRN Reason Stop Dose Admin Sodium Chloride 1,000 mls @ 150 mls/hr 02/19/21 18:05 02/19/21 18:31 Normal Saline IV 02/20/21 00:44 150 mls/hr NOW STA Administration Ketorolac Tromethamine 30 mg 02/19/21 18:05 02/19/21 18:33 Ketorolac 30 Mg/Ml Sdv IVPUSH 02/19/21 18:06 30 mg ONETIME ONE Administration Ondansetron HCl 4 mg 02/19/21 18:05 02/19/21 18:31 Ondansetron 4 Mg/2 Ml Sdv IVPUSH 02/19/21 18:06 4 mg ONETIME ONE Administration Sodium Chloride 10 ml 02/19/21 17:06 02/19/21 18:31 Sodium Chloride 0.9% 10 Ml Syringe FLUSH 10 ml ASDIRECTED PRN Administration Keep Vein Open - Re-Assessments/Exams Free Text/Narrative Re-Assessment/Exam: Patient is a 30-year-old female presenting to the emergency department with complaints of ongoing symptoms of COVID-19. She reports headache, nausea, vomiting, diarrhea, and shortness of breath. Symptoms began 12 days ago. On exam, lung sounds are clear. Exam is otherwise unremarkable. I have ordered blood work, EKG, and chest x-ray. 02/19/21 19:28 Hematology is grossly unremarkable. D-dimer is normal, troponin is undetectably low. EKG shows a normal sinus rhythm at 65. Chest x-ray shows no evidence of pneumonia. Results discussed with patient. I will send prescription for Zofran for nausea. Recommend that she continue to increase fluid intake and use Tylenol and ibuprofen as needed for discomfort. Discussed return precautions. Discharge instructions as documented. Departure - Departure Time of Disposition: 19:28 Disposition: Home, Self-Care 01 Condition: Good Clinical Impression: COVID-19 - Discharge Information *PRESCRIPTION DRUG MONITORING PROGRAM REVIEWED*: No *COPY OF PRESCRIPTION DRUG MONITORING REPORT IN PATIENT AMADOU: No Instructions: COVID-19 Referrals: Tarah Jones PA-C [Primary Care Provider] - Forms: ED Department Discharge Additional Instructions: You were seen in the emergency department today for evaluation of ongoing COVID19 symptoms. Workup included blood work, an ECG of your heart, and a chest xray. Results of these were found to be normal. Recommend that you continue to rest and increase your fluid intake. You may continue to use tylenol and ibuprofen as needed for headache. Use the medications that you have for nausea at home as needed. If you should experience any new or worsening symptoms of concern, please do not hesitate to return to the ER for reevaulation. Sepsis Event Note (ED) - Evaluation Sepsis Screening Result: No Definite Risk
--- NOTE | 2021-02-20 08:07 | CR ---
Chest: Portable view of the chest was obtained. Comparison: Prior chest x-rays of 01/06/19 and 07/16/18 Heart size and mediastinum are normal. Lungs show no acute parenchymal change. Minimal scoliosis is noted within the spine. Impression: 1. Nothing acute is seen on portable chest x-ray. Diagnostic code #2
== END 2021-02-19 21:00 | disposition home or self-care (01) ==
LOC: JD.ED 16:50
DX: U07.1 COVID-19 (principal); K21.9 Gastro-esophageal reflux disease without esophagitis; Z88.0 Allergy status to penicillin; Z79.899 Other long term (current) drug therapy
CPT/HCPCS: 36415; 71045; 80053; 84484; 85025; 85379; 86140; 93005; 96374; 96375; 99285; J1885; J2405; J7030; 99283

== ENCOUNTER 2021-04-06 06:58 | Day surgery (SDC) | payer BC ==
[~2021-04-06 06:58] MED LIST: Lactated Ringers 1,000 ML IV SCH; Lidocaine 1%/Sod Bicarbonate in NS 8.4% 1 ML Syringe IDERM PRN; Sodium Chloride 0.9% 10 ML Syringe FLUSH PRN
[2021-04-06] MEDS ORDERED: Bupivacaine 0.5% 30 ML SDV ONE (07:01)
[2021-04-06] MEDS ORDERED: Propofol 200 MG/20 ML SDV ONE (07:10)
[2021-04-06] MEDS ORDERED: fentaNYL 250 MCG/5 ML SDV ONE (07:10)
[2021-04-06] MEDS ORDERED: Midazolam 1 MG/ML 2 ML SDV ONE (07:10)
[2021-04-06] MEDS ORDERED: Rocuronium 50 MG/5 ML Vial ONE (07:10)
[2021-04-06] MEDS ORDERED: Lidocaine 1% 4 ML ONE (07:10)
[2021-04-06] MEDS ORDERED: Ondansetron 4 MG/2 ML SDV ONE (07:10)
[2021-04-06] MEDS ORDERED: Ketorolac 30 MG/ML SDV ONE (07:11)
[2021-04-06] MEDS ORDERED: Dexamethasone 4 MG/ML 5 ML MDV ONE (07:11)
[2021-04-06] MEDS ORDERED: ceFAZolin 1 GM Vial ONE (07:20)
--- NOTE | 2021-04-06 07:37 | PCM.PREANE ---
Preanesthetic Assessment - Procedure Proposed Procedure: lavh- bilateral salpingectomy - Anesthesia/Transfusion/Family Hx Anesthesia History: Prior Anesthesia Without Reaction Family History of Anesthesia Reaction: No Transfusion History: No Prior Transfusion(s) - Review of Systems General: No Symptoms Pulmonary: No Symptoms Cardiovascular: No Symptoms Gastrointestinal: Abdominal Pain (crampy pain uterus for years and gastritis) Neurological: Headache (migraines) Other: Reports: None - Physical Assessment NPO Status Date: 04/05/21 NPO Status Time: 22:30 Vital Signs: 130/84 68 98% 16 98.1 Height: 5 ft 5 in Weight: 71.2 kg ASA Class: 2 Mental Status: Alert & Oriented x3 Airway Class: Mallampati = 1 Dentition: Reports: Normal Dentition Thyro-Mental Finger Breadths: 3 Mouth Opening Finger Breadths: 3 ROM/Head Extension: Full Lungs: Clear to Auscultation, Normal Respiratory Effort Cardiovascular: Regular Rate, Regular Rhythm - Allergies Allergies/Adverse Reactions: Allergies Allergy/AdvReac Type Severity Reaction Status Date / Time amoxicillin Allergy Severe Rash Verified 04/05/21 09:08 - Blood Blood Available: No - Acknowledgements Anesthesia Type Planned: General Anesthesia Pt an Appropriate Candidate for the Planned Anesthesia: Yes Alternatives and Risks of Anesthesia Discussed w Pt/Guardian: Yes Pt/Guardian Understands and Agrees with Anesthesia Plan: Yes PreAnesthesia Questionnaire HEENT History: Reports: Impaired Vision Other HEENT History: Wears glasses Cardiovascular History: Reports: None Respiratory History: Reports: None Gastrointestinal History: Reports: GERD Genitourinary History: Reports: Other (See Below) Other Genitourinary History: bladder pain 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: , 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 , Other (See Below) Other OB/BYN History: pelvic pain, menorrhagia, endometriosis Musculoskeletal History: Reports: Other (See Below) Other Musculoskeletal History: sciatica-usually left Neurological History: Reports: Migraines Psychiatric History: Reports: None Endocrine/Metabolic History: Reports: None Hematologic History: Reports: None Immunologic History: Reports: None Oncologic (Cancer) History: Reports: None Dermatologic History: Reports: None - Infectious Disease History Infectious Disease History: Reports: Novel Coronavirus, Other (See Below) Other Infectious Disease History: covid on 02/12/21 - Past Surgical History Head Surgeries/Procedures: Reports: None HEENT Surgical History: Reports: Oral Surgery Cardiovascular Surgical History: Reports: None Respiratory Surgical History: Reports: None GI Surgical History: Reports: Colonoscopy, EGD Female Surgical History: Reports: Section Endocrine Surgical History: Reports: None Neurological Surgical History: Reports: None Dermatological Surgical History: Reports: Other (See Below) (cyst removed from face) - SUBSTANCE USE Tobacco Use Status *Q: Former Tobacco User (3 years) Tobacco Use Within Last Twelve Months: No Second Hand Smoke Exposure: No Days Per Week of Alcohol Use: 0 Recreational Drug Use History: No - HOME MEDS Home Medications: Home Meds Cetirizine [ZyrTEC] 10 mg PO DAILY PRN 01/06/19 [History] Sucralfate [Carafate] 1 gm PO DAILY 02/12/21 [History] Pantoprazole Sodium [Protonix] 40 mg PO DAILY 02/19/21 [History] Cholecalciferol (Vitamin D3) [Vitamin D3] 2,000 unit PO DAILY 04/05/21 [History] Magnesium Oxide [Magnesium] 400 mg PO DAILY 04/05/21 [History] Multivitamin 1 tab PO DAILY 04/05/21 [History] - CURRENT (IN HOUSE) MEDS Current Meds: Current Medications Lactated Ringer's (Ringers, Lactated) 1,000 mls @ 125 mls/hr IV ASDIRECTED JENNIFER Stop: 04/06/21 23:00 Lidocaine/Sodium Bicarbonate (Lidocaine 1%/Sod Bicarbonate In Ns 8.4% 1 Ml Syringe) 0.25 ml IDERM ONETIME PRN PRN Reason: Prior to IV Start Stop: 04/06/21 18:00 Sodium Chloride (Sodium Chloride 0.9% 10 Ml Syringe) 10 ml FLUSH ASDIRECTED PRN PRN Reason: Keep Vein Open Stop: 04/06/21 18:00 Discontinued Medications Bupivacaine HCl (Bupivacaine 0.5% 30 Ml Sdv) Confirm Administered Dose 30 ml .ROUTE .STK-MED ONE Stop: 04/06/21 07:02 Cefazolin Sodium (Cefazolin 1 Gm Vial) Confirm Administered Dose 2 gm .ROUTE .STK-MED ONE Stop: 04/06/21 07:21 Dexamethasone (Dexamethasone 4 Mg/Ml 5 Ml Mdv) Confirm Administered Dose 20 mg .ROUTE .STK-MED ONE Stop: 04/06/21 07:12 Fentanyl (Fentanyl 250 Mcg/5 Ml Sdv) Confirm Administered Dose 250 mcg .ROUTE .STK-MED ONE Stop: 04/06/21 07:11 Lactated Ringer's (Ringers, Lactated) 1,000 mls @ 125 mls/hr IV ASDIRECTED JENNIFER Lidocaine HCl (Xylocaine-Mpf 1%) Confirm Administered Dose 4 mls @ as directed .ROUTE .STK-MED ONE Stop: 04/06/21 07:11 Ketorolac Tromethamine (Ketorolac 30 Mg/Ml Sdv) Confirm Administered Dose 30 mg .ROUTE .STK-MED ONE Stop: 04/06/21 07:12 Lidocaine/Epinephrine (Lidocaine 1% With Epinephrine 1:100,000 10 Ml Mdv) Confirm Administered Dose 10 ml .ROUTE .STK-MED ONE Stop: 04/06/21 07:02 Lidocaine/Sodium Bicarbonate (Lidocaine 1%/Sod Bicarbonate In Ns 8.4% 1 Ml Syringe) 0.25 ml IDERM ONETIME PRN PRN Reason: Prior to IV Start Midazolam HCl (Midazolam 1 Mg/Ml 2 Ml Sdv) Confirm Administered Dose 2 mg .ROUTE .STK-MED ONE Stop: 04/06/21 07:11 Ondansetron HCl (Ondansetron 4 Mg/2 Ml Sdv) Confirm Administered Dose 4 mg .ROUTE .STK-MED ONE Stop: 04/06/21 07:11 Propofol (Propofol 200 Mg/20 Ml Sdv) Confirm Administered Dose 200 mg .ROUTE .STK-MED ONE Stop: 04/06/21 07:11 Rocuronium [place] (Rocuronium 50 Mg/5 Ml Vial) Confirm Administered Dose 50 mg .ROUTE .STK-MED ONE Stop: 04/06/21 07:11 Sodium Chloride (Sodium Chloride 0.9% 10 Ml Syringe) 10 ml FLUSH ASDIRECTED PRN PRN Reason: Keep Vein Open Sodium Chloride (Sodium Chloride 0.9% 50 Ml Sdv) Confirm Administered Dose 50 ml .ROUTE .STK-MED ONE Stop: 04/06/21 07:02
[2021-04-06] MEDS ORDERED: Ketamine 500 mg/10 ML MDV ONE (08:09)
[2021-04-06] MEDS ORDERED: Ondansetron 4 MG/2 ML SDV IVPUSH PRN (08:22)
[2021-04-06] MEDS ORDERED: Lactated Ringers 1,000 ML ONE (08:27)
[2021-04-06] MEDS ORDERED: HYDROmorphone 0.5 MG/0.5 ML Syringe ONE (08:27)
[2021-04-06] MEDS: Sodium Chloride 0.9% 50 ML SDV ONE ×2 (08:34→08:44)
[2021-04-06] MEDS: Lidocaine 1% with EPINEPHrine 1:100,000 10 ML MDV ONE ×2 (08:34→08:44)
--- NOTE | 2021-04-06 09:53 | PCM.POSTAN ---
POST ANESTHESIA ASSESSMENT - MENTAL STATUS Mental Status: Alert, Oriented - VITAL SIGNS Vital Signs: Last Vital Signs Temp 98.1 F 04/06/21 07:10 Pulse 68 04/06/21 07:10 Resp 16 04/06/21 07:10 BP 130/84 04/06/21 07:10 Pulse Ox 98 04/06/21 07:10 0946 127/81 100% 96 17 98.1 - RESPIRATORY Respiratory Status: Respiratory Rate WNL, Airway Patent, O2 Saturation Stable, Supplemental Oxygen - CARDIOVASCULAR CV Status: Pulse Rate WNL, Blood Pressure Stable - GASTROINTESTINAL GI Status: No Symptoms - PAIN Pain Score: 4 - POST OP HYDRATION Hydration Status: Adequate & Stable
[2021-04-06] MEDS: fentaNYL 100 MCG/2 ML SDV IVPUSH PRN ×3 (10:04→14:00)
--- NOTE | 2021-04-06 10:04 | PCM.OPNOTE ---
- General Post-Op/Procedure Note Date of Surgery/Procedure: 04/06/21 Operative Procedure(s): Laparoscopic-assisted vaginal hysterectomy with bilateral salpingectomy Findings: Grossly normal-appearing cervix, uterus, bilateral fallopian tubes and bilateral ovaries. The left fallopian tube did have some scarring of the fimbria to the left ovary. Grossly normal-appearing visualized portions of the intestines, liver and gallbladder. Appendix was not visualized but no inflammation was noted in this area around the cecum or right lower quadrant. Pre Op Diagnosis: Chronic pelvic pain, endometriosis, back pain with sciatica Post-Op Diagnosis: Same Anesthesia Technique: General ET Tube Primary Surgeon: Pepito Jesus Anesthesia Provider: Dania Millan Shoulder Puncher: Mahesh Gonzalez Shoulder Puncher: Edu Valenzuela ([id number]) Reason Shoulder Puncher Was Necessary: Patient safety and reduction of morbidity and mortality Role of Shoulder Puncher: Use of laparoscopic instruments for portions of the case and retraction for visualization Pathology: Uterus, cervix and bilateral fallopian tubes Fluid Replacement, Intraop: 1,300 Output, Urine Amount: 175 EBL in mLs: 175 Complications: None Condition: Good Free Text/Narrative:: The patient was seen in the preoperative holding area and risks, benefits, indications, and alternatives of the procedure were reviewed with the patient and she desired to proceed with a laparoscopic assisted vaginal hysterectomy, bilateral salpingectomy, possible unilateral or bilateral salpingo-oophorectomy, possible excision or fulguration of endometriosis lesions and possible total abdominal hysterectomy. Consents were reviewed. The patient was taken back to the OR and given general anesthesia with an endotracheal tube which was placed without difficulty. She was placed in dorsal lithotomy position using Yellofin stirrups. She was prepped and draped in normal sterile fashion. A Roland catheter was placed without difficulty. Attention was then turned to her umbilicus and it was injected with 0.5% Marcaine and a 5 mm stab incision was made with a scalpel and a Veress needle was then inserted through the incision. The gas was turned on, with an opening pressure of 9 mmHg. Pneumoperitoneum was continued until 15 mmHg pressure. A 5 mm trocar was then inserted under direct visualization through the incision without difficulty. Attention was then turned to the patient's right lower quadrant where an avascular space approximately intermediate between the ASIS and the u mbilicus was identified. Local anesthetic was injected and a 5 mm incision was made with a scalpel. A 5 mm trocar was then inserted under direct visualization of the laparoscope. Attention was then turned to the left lower quadrant, where again an avascular portion of the abdominal wall was identified approximately intermediate between the ASIS and the umbilicus. Local anesthetic was injected and a scalpel was used to make a 5 mm incision. A 5 mm trocar was inserted under direct visualization with the laparoscope. Attention was then turned to the pelvis where the uterus was visualized and noted be normal in appearance with normal appearing bilateral fallopian tubes and normal-appearing bilateral ovaries. The atraumatic grasper was then removed from the right lower trocar and a Enseal vessel sealing device was introduced and was used to transect the right fallopian tube and round ligament. The mesosalpinx connecting the right fallopian tube was transected from the ovary and underlying tissue. The right round ligament was then transected using the Enseal vessel sealing device. The utero-ovarian ligament was then transected using the Enseal vessel sealing device. The right side of the uterus and broad ligament were then transected using the Enseal vessel sealing device until the level of the uterovesical peritoneal reflection. A bladder flap was created using the Enseal vessel sea ling device. This was repeated on the patient's left side. The left fimbria and of the fallopian tube was adherent to the left ovary and this was dissected off of the ovary using the Enseal vessel sealing device. The remainder of the fallopian tube was transected from the mesosalpinx using the Enseal vessel sealing device. The utero-ovarian ligament was then transected using Enseal vessel sealing device. The left round ligament was transected using Enseal vessel sealing device and the broad ligament was transected to the level of the uterovesical peritoneal reflection. The previously created bladder flap was then extended using the Enseal vessel sealing device. The pelvis was then inspected for hemostasis at this time and hemostasis was noted. All instruments were removed from the abdomen. Attention was then turned to the patient's perineum where a weighted speculum was placed into the vagina and a [place] retractor was used to visualize the cervix. The cervix was grasped with a double-tooth tenaculum. The cervical reflection point was then injected circumferentially with 0.25% lidocaine with epinephrine. The cervix was then circumferentially incised with a scalpel. The bladder was then dissected off the pubovesical cervical fascia anteriorly with Metzenbaum scissors. The same procedure was performed posteriorly and the posterior cul-de-sac was entered sharply without difficulty using Metzenbaum scissors. At this point, an Enseal vessel sealing device was placed over the uterosacral ligaments on the patient's left side. These were cauterized and ligated with the device. This was repeated on the patient's right side. Hemostasis was assured. Metzenbaum scissors were then used to enter the anterior cul-de-sac using sharp dissection. The cardinal ligaments were then clamped on both sides using the Enseal vessel sealing device, cauterized and transected with the device. The uterine artery on the patient's right side side and the remainder of the broad ligament were then serially clamped with the Enseal vessel sealing device, cauterized and transected with the device. Excellent hemostasis was noted. The cervix and uterus was able to be delivered at this time. The posterior vaginal cuff was closed with running locked sutures of 0 Monocryl. The vaginal cuff was then closed in a horizontal fashion using running locked sutures with 0 Monocryl suture. All instruments were removed from the vagina. Attention was then turned to the abdomen where a laparoscope was inserted and was used to check for hemostasis. Hemostasis was noted at this time. The case was complete at this time. The gas was then evacuated from the peritoneum and trocars removed. These were closed using 4-0 Monocryl suture and Dermabond. The patient was awoken from general anesthesia and taken to the PACU for recovery in stable condition. She will be discharged to home once she is able to meet all postoperative milestones including tolerating small amount of oral intake and liquids, ambulate without difficulty, her pain controlled with oral medications and able to void without difficulty. She will follow-up in the clinic in 2 weeks or earlier as needed. Sponge, lap, needle, and instrument counts were correct x 2. Review of images from the case IMG 001: Right upper quadrant of the abdomen with right lobe of the liver and visualized portion of the gallbladder that were normal in appearance IMG 002: Left upper quadrant of the abdomen with left lobe of the liver and visualized portion of the stomach grossly normal in appearance IMG 003: Posterior portion of the uterus with left broad ligament with possible varicosities of the uterine vessels along the left edge of the uterus IMG 004: Grossly normal-appearing right ovary and fallopian tube with small paratubal cyst present IMG 005: Left fallopian tube and ovary grossly normal in appearance. Fimbriated end of the lobe and tube adherent to the ovary in this picture IMG 006: Anterior cul-de-sac with grossly normal appearance with scar present and scarring on the anterior abdominal wall of the peritoneum IMG 007: Close-up image of scarring on the anterior abdominal wall peritoneum without evidence of endometriosis present. IMG 008: Posterior cul-de-sac grossly normal in appearance without endometriosis or scarring present. The suspected varicosity of the uterine vessels was again noted at the 10 o'clock position near the end of the picture IMG 009: Right pelvic sidewall and ovary after hysterectomy with hemostasis noted IMG 010: Left pelvic sidewall and ovary after hysterectomy wit hemostasis noted IMG 011: Vaginal cuff with hemostasis after hysterectomy Pepito Jesus MD 10:04 AM 04/06/2021
[2021-04-06] MEDS: HYDROmorphone 0.5 MG/0.5 ML Syringe IVPUSH PRN ×2 (10:56→13:59)
[2021-04-06] MEDS: Acetaminophen/oxyCODONE 325-5 MG Tab PO SCH ×2 (12:05→12:50)
--- NOTE | 2021-04-06 14:45 | PCM48HPAN ---
Post Anesthesia Note - EVALUATION WITHIN 48HRS OF ANESTHETIC Vital Signs in Normal Range: Yes Patient Participated in Evaluation: Yes Respiratory Function Stable: Yes Airway Patent: Yes Cardiovascular Function Stable: Yes Hydration Status Stable: Yes Pain Control Satisfactory: Yes Nausea and Vomiting Control Satisfactory: Yes Mental Status Recovered: Yes Vital Signs: Last Vital Signs Temp 98.2 F 04/06/21 12:05 Pulse 53 L 04/06/21 14:00 Resp 16 04/06/21 14:00 BP 130/80 04/06/21 14:00 Pulse Ox 96 04/06/21 14:00 - COMMENTS/OBSERVATIONS Free Text/Narrative:: Will go to floor for recovery as needed additional IV pain meds. States is more comfortable now.
[2021-04-06] MEDS ORDERED: HYDROmorphone 0.5 MG/0.5 ML Syringe IVPUSH PRN (14:55)
[2021-04-06] MEDS ORDERED: Ibuprofen 600 MG Tab PO PRN (14:56)
[2021-04-06] MEDS ORDERED: Acetaminophen/oxyCODONE 325-5 MG Tab PO PRN (15:11)
[2021-04-06] MEDS ORDERED: Sucralfate 1 GM Tab PO ONE (16:00)
[2021-04-06] MEDS ORDERED: Pantoprazole 40 MG Tab.CR PO SCH (16:00)
[2021-04-06] MEDS ORDERED: Ondansetron 4 MG Tab.DIS PO PRN (16:24)
[2021-04-06] MEDS ORDERED: Simethicone 80 MG Tab.Chew PO PRN (17:14)
== END 2021-04-06 20:13 | disposition home or self-care (01) ==
LOC: JD.SDS 06:58 → JD.OB 16:40 → JD.SDS 20:13
PROVIDERS: ATTEND Obstetrics & Gynecology
DX: N80.0 Endometriosis of uterus (principal); N83.8 Other noninflammatory disorders of ovary, fallopian tube and broad ligament; G43.109 Migraine with aura, not intractable, without status migrainosus; Z88.1 Allergy status to other antibiotic agents; Z79.899 Other long term (current) drug therapy; Z98.890 Other specified postprocedural states; Z87.891 Personal history of nicotine dependence
CPT/HCPCS: 00944; 36415; 84703; 86850; 86900; 86901; 88307; A9270-GY; J0690; J1100; J1170; J1885; J2250; J2405; J2704; J2710; J3010; J3490; J7120

== ENCOUNTER 2022-02-23 14:23 | Emergency (ER) | payer BC | END 2022-02-23 18:00 | disposition left against medical advice (07) | LOC: JD.ED 14:23 | DX: Z53.21 Procedure and treatment not carried out due to patient leaving prior to being seen by health care provider (principal) ==

== ENCOUNTER 2022-05-12 21:25 | Emergency (ER) | payer BC ==
[2022-05-12] MEDS ORDERED: Sodium Chloride 0.9% 10 ML Syringe FLUSH PRN (22:05)
[2022-05-12] MEDS ORDERED: HYDROmorphone 0.5 MG/0.5 ML Syringe IVPUSH ONE (22:06)
[2022-05-12] MEDS ORDERED: Famotidine 20 MG/2 ML SDV IVPUSH ONE (22:48)
== END 2022-05-12 23:57 | disposition home or self-care (01) ==
LOC: JD.ED 21:25
DX: R07.89 Other chest pain (principal); R20.0 Anesthesia of skin; K21.9 Gastro-esophageal reflux disease without esophagitis; Z86.16 Personal history of COVID-19; Z88.0 Allergy status to penicillin; Z79.899 Other long term (current) drug therapy
CPT/HCPCS: 36415; 70450; 71045; 80053; 83735; 84484; 85025; 85379; 93005; 96374; 96375; 99285; J1170; J3490